=== PATIENT | male | born 1950 | race American Indian/Alaskan Native ===

== ENCOUNTER 2019-03-21 09:59 | Outpatient (CLI) | payer MEDICARE, OTHER ==
--- NOTE | 2019-03-21 11:52 | Ultrasound Report ---
BILATERAL DIGITAL DIAGNOSTIC MAMMOGRAM with CAD and LEFT BREAST ULTRASOUND: 03/21/19 10:24:00 CLINICAL: 69-year-old male with left mastodynia. COMPARISON:None. FINDINGS: The breasts are almost entirely fatty withminimal bilateral subareolar fibroglandular densities, slightly greater on the left than the right. No mass, architectural distortion or suspicious calcifications. Ultrasound of the left breast (including all four quadrants and the retroareolar area) was performed and demonstrated normal fatty structures with no mass, fluid collection, cyst or shadowing. No axillary lymphadenopathy. IMPRESSION: Mild left benign gynecomastia which likely explains the left breast pain. Normal right breast. BI-RADS CATEGORY: 2 -- Benign RECOMMENDATION: Clinical follow-up. COMMENT: Patient follow-up letters are generated by our [employer] application.
== END 2019-03-21 10:00 | disposition home or self-care (01) ==
LOC: MAMMO 09:59
PROVIDERS: ATTEND Internal Medicine
DX: N62 Hypertrophy of breast (principal); I12.9 Hypertensive chronic kidney disease with stage 1 through stage 4 chronic kidney disease, or unspecified chronic kidney disease; N18.3 Chronic kidney disease, stage 3 (moderate); E78.00 Pure hypercholesterolemia, unspecified
CPT/HCPCS: 77066